=== PATIENT | female | born 1995 | race Hispanic/Latino ===

== ENCOUNTER 2018-06-08 19:32 | Outpatient (CLI) | payer BC | END 2018-06-08 19:33 | disposition home or self-care (01) | LOC: C.SLEEP 19:32 | DX: G47.33 Obstructive sleep apnea (adult) (pediatric) (principal) ==

== ENCOUNTER 2018-06-09 12:15 | Outpatient (CLI) | payer BC | END 2018-06-09 12:16 | disposition home or self-care (01) | LOC: C.SLEEP 12:16 | DX: G47.33 Obstructive sleep apnea (adult) (pediatric) (principal) ==